=== PATIENT | male | born 1980 | race Caucasian/White ===

== ENCOUNTER 2020-01-07 10:32 | Outpatient (RCR) | payer OTHER ==
[~2020-01-07] VITALS: Ht 185 cm; Wt 104.5 kg
[~2020-01-07 10:32] MED LIST: LISI10TA2 PO
== END 2020-01-07 10:37 | disposition home or self-care (01) ==
LOC: PREOP 10:32
PROVIDERS: ATTEND Otolaryngology Otolaryngology/Facial Plastic Surgery
DX: Z01.818 Encounter for other preprocedural examination (principal)

== ENCOUNTER 2020-01-14 06:31 | Day surgery (SDC) | payer OTHER ==
[2020-01-14] VITALS (9 sets, daily range): BP systolic 121–139; BP diastolic 72–101
[~2020-01-14] VITALS: Ht 185 cm; Wt 104.5 kg
[2020-01-14] MEDS ORDERED: LACTATED RINGERS 1,000 ML IV PRN (06:35)
[2020-01-14] MEDS ORDERED: LIDOCAINE/EPI 1%-1:100,000 (XYLOCAINE) 20ML ONE (07:46)
[2020-01-14] MEDS ORDERED: PHENYLEPHRINE 0.5% NASAL SPR (NEO-SYNEPHRINE) REG ONE (07:46)
[2020-01-14] MEDS ORDERED: COCAINE HCL 4% 2 ML SYR ONE (07:46)
[2020-01-14] MEDS ORDERED: proPOfol 200 MG/20 ML (DIPRIVAN) VIAL IV ONE ×2 (07:49→08:01)
[2020-01-14] MEDS ORDERED: fentaNYL INJECTION 100 MCG/2 ML AMP ONE (07:49)
[2020-01-14] MEDS ORDERED: MIDAZOLAM 2 MG/2 ML (VERSED) VIAL ONE (07:49)
[2020-01-14] MEDS ORDERED: LIDOCAINE PF 2% 5 ML (XYLOCAINE) VIAL ONE (08:01)
[2020-01-14] MEDS ORDERED: ONDANSETRON 4 MG/2 ML (SDV) Z0FRAN ONE (08:01)
[2020-01-14] MEDS ORDERED: SEVOFLURANE (ULTANE) 15 ML INHAL SOLN ONE ×3 (08:01→08:52)
--- NOTE | 2020-01-14 08:23 | Progress Note-Pre Operative ---
Pre-Operative Progress Note H&P Reviewed The H&P was reviewed, patient examined and no changes noted. Date Seen by Provider: Jan 14, 2020 Time Seen by Provider: 07: Date H&P Reviewed: Jan 14, 2020 Time H&P Reviewed: :30 Pre-Operative Diagnosis: Deviated Nasal Septum, Bilat Hyper of Inf Turbs SHANA RAZA MD Jan 14, 2020 08:23
[2020-01-14] MEDS ORDERED: D5 1/2 NS W/KCL 20 MEQ/L 1,000 ML IV SCH (09:17)
--- NOTE | 2020-01-14 09:17 | Progress Note-Post Operative ---
Post-Operative Progess Note Surgeon (s)/[employer] (s) Surgeon SHANA RAZA MD [employer] n/a Pre-Operative Diagnosis Deviated Nasal Septum, Bilat Hyper of Inf Turbs Post-Operative Diagnosis same Post-Op Procedure Note Date of Procedure: Jan 14, 2020 Name of Procedure Performed: Nasal Septoplasty, Bilateral Partial REduction of the INferior Turbinates Description & Findings Description and Findings: n/a Anesthesia Type get Estimated Blood Loss minimal Packing none. Specimen(s) collected/removed nasal septum SHANA RAZA MD Jan 14, 2020 09:17
[2020-01-14] MEDS ORDERED: ROCURONIUM 10 MG/ML 5 ML SYRINGE IV ONE (09:25)
--- NOTE | 2020-01-14 09:25 | Anesthesia-General Post-Op ---
General Patient Condition Mental Status/LOC: Same as Preop Cardiovascular: Satisfactory Nausea/Vomiting: Absent Respiratory: Satisfactory Pain: Controlled Complications: Absent Post Op Complications Complications None Follow Up Care/Instructions Patient Instructions None needed. Anesthesia/Patient Condition Patient Condition Patient is doing well, no complaints, stable vital signs, no apparent adverse anesthesia problems. No complications reported per nursing. DONI NEGRETE CRNA Jan 14, 2020 09:25
[2020-01-14] MEDS ORDERED: PROMETHAZINE INJ 25 MG/ML (PHENERGAN) AMP IVP PRN (09:30)
[2020-01-14] MEDS ORDERED: fentaNYL INJECTION 100 MCG/2 ML AMP IVP ONE (09:30)
[2020-01-14] MEDS ORDERED: morphine INJ 10 MG/ML 1ML (SYR OR VIAL) IVP ONE (09:30)
[2020-01-14] MEDS ORDERED: HYDROcodone/APAP 5 MG/325 MG (LORTAB) TAB PO PRN (09:30)
[2020-01-14] MEDS ORDERED: ONDANSETRON 4 MG/2 ML (SDV) Z0FRAN IVP PRN (09:30)
[2020-01-14] MEDS ORDERED: ACETAMINOPHEN 325 MG TABLET PO PRN (09:30)
[2020-01-14] MEDS ORDERED: ACHD5005 PO (10:30)
[2020-01-14] MEDS ORDERED: AMOX-355 PO (10:30)
== END 2020-01-14 11:30 | disposition home or self-care (01) ==
LOC: SDC 06:31
PROVIDERS: ATTEND Otolaryngology Otolaryngology/Facial Plastic Surgery
DX: J34.2 Deviated nasal septum (principal); J34.89 Other specified disorders of nose and nasal sinuses; J34.3 Hypertrophy of nasal turbinates; R09.81 Nasal congestion; I10 Essential (primary) hypertension; K21.9 Gastro-esophageal reflux disease without esophagitis; Z79.899 Other long term (current) drug therapy; Z80.9 Family history of malignant neoplasm, unspecified; Z83.3 Family history of diabetes mellitus
CPT/HCPCS: 87081; 88304